=== PATIENT | female | born 1985 | race African-American/Black ===

== ENCOUNTER 2018-10-24 15:23 | Emergency (ER) | payer BC, MEDICAID ==
[~2018-10-24] VITALS: Ht 175.3 cm; Wt 104.5 kg
[2018-10-24 15:26] VITALS: BP 123/78; PULSE 80; TEMP 98
[2018-10-24] MEDS ORDERED: PREDNISONE20 MG PO (16:25)
[2018-10-24] MEDS ORDERED: TESSALON P100 MG/CAP PO (16:25)
== END 2018-10-24 17:08 | disposition home or self-care (01) ==
LOC: COL.ER 15:23
DX: J06.9 Acute upper respiratory infection, unspecified (principal); Z88.1 Allergy status to other antibiotic agents; Z98.890 Other specified postprocedural states
CPT/HCPCS: J7512

== ENCOUNTER → 2020-06-11 | Outpatient (CLI) | payer SELFPAY ==
[~2020-06-11] MED LIST: PREDNISONE20 MG PO; TESSALON P100 MG/CAP PO
== END | disposition still patient (30) ==
LOC: EDSTATUS 15:15 → ZCOL.LAB 16:53
DX: Z20.828 Contact with and (suspected) exposure to other viral communicable diseases (principal)